=== PATIENT | male | born 2000 | race Caucasian/White ===

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

== ENCOUNTER 2021-04-06 19:45 | Emergency (ER) | payer MEDICAID, OTHER, SELFPAY ==
[2021-04-06 19:46] VITALS: BP 109/83; PULSE 113; RESP 18; TEMP 36.2; O2SAT 97; BMI 17.2
--- NOTE | 2021-04-06 20:23 | EX.ED.DYSGE1 ---
HPI History of Present Illness Chief Complaint: Cold Sx Informant: patient Narrative Narrative: 21-year-old male presents the emergency department with concerns for COVID-19. Patient states that yesterday he is having some nasal congestion cough and is now developed fever. He notes that his mom and sister have both tested positive for COVID-19. He is on vaccinated. He denies any diarrhea nausea or vomiting. He has not had anything to eat today because there is nothing in the house. PFSH PFS Medical History Attention deficit disorder Home Medications NK 07/03/20 [History Last Taken Unknown] Allergy/AdvReac Type Severity Reaction Status Date / Time amphetamine aspartate Allergy Other Verified 04/06/21 19:48 [From Adderall] amphetamine sulfate Allergy Other Verified 04/06/21 19:48 [From Adderall] dextroamphetamine saccharate Allergy Other Verified 04/06/21 19:48 [From Adderall] dextroamphetamine sulfate Allergy Other Verified 04/06/21 19:48 [From Adderall] methylphenidate HCl Allergy Other Verified 04/06/21 19:48 [From Concerta] no surgical history Social History (Updated 04/06/21 @ 20:[address] Steve Alonso DO) Smoking Status: Current every day smoker tobacco type: cigarettes substance use type: does not use ROS ROS ED Constitutional Constitutional ED: Reports fever(s); Denies chills or weight loss Eyes Eyes: Denies change in vision or diplopia ENT ENT ED: Reports rhinorrhea; Denies ear pain or sore throat Cardiovascular Cardiovascular: Denies chest pain, orthopnea, palpitations or racing heartbeat Respiratory/Chest Respiratory/Chest: Reports cough; Denies dyspnea or orthopnea Gastrointestinal Gastrointestinal: Denies abdominal pain, diarrhea, nausea or vomiting Genitourinary Genitourinary ED: Denies dysuria, hematuria or urinary frequency Musculoskeletal Musculoskeletal: Denies arthralgias or myalgias Integumentary Denies abscess or rash Neurologic Neurologic: Denies headache(s) or weakness Psychiatric Psychiatric: Denies anxiety, depression, suicidal ideation or suicidal thoughts Endocrine Endocrinology: Denies polydipsia, polyphagia or polyuria Allergic/Immunologic Allergic/Immunologic ED: Denies mouth swelling, tongue swelling or urticaria EXAM Physical Exam Const Vital Signs: 04/06/21 19:46 04/06/21 20:21 Temperature 97.2 F L Temperature Source Temporal Pulse Rate 113 H Respiratory Rate 18 Respiratory Effort Normal Respiratory Pattern Normal Blood Pressure 109/83 H Blood Pressure Mean 91 Pulse Ox 97 Oxygen Delivery Method Room Air Positive well nourished and well developed General Appearance ED: well developed HEENT Reports normocephalic, head/scalp atraumatic and moist mucous membranes Eyes PERRL and EOMs intact bilaterally Neck no lymphadenopathy, supple and no JVD Resp normal respiratory effort and clear to auscultation bilaterally Cardio regular rate, regular rhythm and no murmurs GI normal to inspection, nondistended, normoactive bowel sounds and non-tender Palpation: soft Back/Spine no CVA tenderness and normal ROM Extremity normal to inspection General Extremety ED: Negative for edema General Extremity: Negative for edema Neuro oriented x3 and CN's II-XII intact bilaterally Sensorium / Orientation: alert Motor Exam: strength 5/5 throughout Psych mental status grossly normal Mood & Affect: Negative for depressed or tearful Skin no rashes or lesions noted and no wounds MDM MDM MDM Narrative Medical decision making narrative: Patient's Covid test is negative. Would recommend continued supportive care. He was advised that sometimes early on in the course of Covid there may not be enough viral particles for the rapid to test positive. Discharge Plan Triage Chief Complaint: Cold Sx ED Provider: Steve Alonso Dx/Rx/DC Orders Clinical Impression: Viral URI Instructions: ED URI, Viral, No Abx (Adult) Prescriptions: No Action NK RF: 0 Primary Care Provider: Carroll Rodarte Referrals: Carroll Rodarte MD [Primary Care Provider] - As Needed Disposition Disposition: Home, Self Care
[2021-04-06 21:17] VITALS: BP 120/70; PULSE 74; RESP 16; O2SAT 98
--- NOTE | 2021-04-07 12:29 | CM.ED ---
SOCIAL WORK Referral Source: Dr. Alonso Reason for Consult: Resources Patient seen in ER on 04/06/21- No SW present. Dr. Alonso with concerns as patient reported no food in the home as to why patient did not eat that day. Call to patient. Introduced role and reason for referral. Patient laughed and stated, I didn't mean we don't have food. There is food here, I'm just a picky eater. Patient reports feeling better today. Patient denies any needs at this time. Kaitlynn Gruber, GLOBAL SECURITY ARCHITECT, FLIGHT SURVEYOR
== END 2021-04-06 21:18 | disposition home or self-care (01) ==
PROVIDERS: Emergency Provider Emergency Medicine; PCP Pediatrics
DX: J06.9 Acute upper respiratory infection, unspecified (principal); Z20.822 Contact with and (suspected) exposure to COVID-19; F98.8 Other specified behavioral and emotional disorders with onset usually occurring in childhood and adolescence; F17.210 Nicotine dependence, cigarettes, uncomplicated
CPT/HCPCS: 87426; 99282

== ENCOUNTER 2022-12-16 14:15 | Emergency (ER) | payer MEDICAID, SELFPAY ==
[2022-12-16 14:16] VITALS: BP 148/89; PULSE 75; RESP 16; TEMP 36.3; O2SAT 100; BMI 18.5
--- NOTE | 2022-12-16 15:38 | EX.ED.DYSGE1 ---
HPI History of Present Illness Chief Complaint: Abd Pain [facility] Medical History Attention deficit disorder Home Medications NK 07/03/20 [History Last Taken Unknown] Allergy/AdvReac Type Severity Reaction Status Date / Time amphetamine aspartate Allergy Other Verified 12/16/22 14:15 [From Adderall] amphetamine sulfate Allergy Other Verified 12/16/22 14:15 [From Adderall] dextroamphetamine saccharate Allergy Other Verified 12/16/22 14:15 [From Adderall] dextroamphetamine sulfate Allergy Other Verified 12/16/22 14:15 [From Adderall] methylphenidate HCl Allergy Other Verified 12/16/22 14:15 [From Concerta] Social History (Updated 04/06/21 @ 20:[address] Steve Alonso DO) Smoking Status: Current every day smoker tobacco type: cigarettes substance use type: does not use EXAM Physical Exam Const Vital Signs: 12/16/22 14:16 12/16/22 15:57 Temperature 97.3 F L Temperature Source Temporal Pulse Rate 75 66 Respiratory Rate 16 16 Blood Pressure 148/89 H 137/87 H Blood Pressure Mean 108 103 Pulse Ox 100 96 Oxygen Delivery Method Room Air Room Air MDM MDM MDM Narrative Medical decision making narrative: HISTORY OF PRESENT ILLNESS: 22-year-old male here for abdominal pain. Patient states he has had a long history of abdominal pain that is intermittent. He notes pain worsened today. He states he has bouts of severe abdominal pain that is not necessarily associated with food. He states he has on and off diarrhea and constipation. His last bowel movement was yesterday. He denies any melena or hematochezia. He denies any history abdominal surgeries. Denies any nausea or vomiting. Denies any fever. Denies any family history of abdominal surgeries in his mother or father in their 20s. He denies any chest pain or shortness of breath. He denies any testicular pain, testicular lesions or penile lesions. Denies any dysuria, frequency or urgency. REVIEW OF SYSTEMS: Pertinent positives: Abdominal pain Pertinent negatives: Vomiting, fever, testicular pain PHYSICAL EXAM: Nursing triage notes reviewed, Vital signs reviewed Constitutional: please see mdm HENT: MMM Eyes: Pupils equal round and reactive to light, Extraocular muscles intact Neck: No stridor, no JVD, full neck ROM Lungs: Clear to auscultation, No wheezing or rales. No increased work of breathing, no conversational dyspnea, no accessory muscle use, no nasal flaring. No respiratory distress noted Heart: Regular rate and rhythm, No murmurs, No rubs and No gallops, 2+ distal pulses (radial, femoral, posterior tibial) in all extremities Abdomen: Soft, there is no tenderness, rigidity, rebound or guarding, no obvious peritoneal signs, no palpable pulsatile abdominal masses, no auscultated abdominal bruit : No CVAT Extremities: No edema Neuro: No focal neurological deficits, cranial nerves II through XII intact, 5/5 strength in all extremities. Intact sensation to light touch in all extremities, 2+ reflexes bilateral patella tendons. Normal gait. No ataxia. Skin: No rash or lesions noted MEDICAL DECISION MAKING: Chief Complaint: Abdominal pain External records reviewed: No recent advanced imaging of the abdomen or pelvis noted MDM Narrative: Patient was hemodynamically stable, afebrile, abdominal exam was benign not consistent with acute surgical pathology. I considered the following differential diagnosis: Pancreatitis, GERD, gastritis, esophagitis, gallbladder pathology, IBS I obtain labs rule out pancreatitis, hepatobiliary obstruction, significant systemic inflammation, signs of dehydration, electrolyte abnormalities or anemia. Gave the patient symptomatic treatment in the form of fluids, Pepcid. Patient's labs show no evidence of systemic inflammation, anemia, dehydration, anion gap to suggest endorgan hypoperfusion, ANUP, no evidence of hepatobiliary obstruction, no evidence of pancreatitis. His repeat abdominal exam remained benign. He is appropriate for discharge home. There is no clear life-limiting etiology could be ascertained. I suspect the patient may be suffering from GERD. I encouraged him to follow-up with gastroenterology. Follow-up with our local director of in service education provided. Strict return precautions and follow-up instructions were discussed. Factors affecting care: History of ADHD Social determinants of health: Positive tobacco use History obtained from others: None Shared decision making: I will have a discussion with the patient and or visitors regarding risk/benefits of further testing or admission. They will be made aware of of the risk/benefits inherent in this decision they will be given the opportunity to voice understanding. Consults: None Lab Data Labs: Laboratory Results - last 24 hr 12/16/22 12/16/22 15:35 15:35 WBC 6.9 RBC 5.45 Hgb 16.1 Hct 47.8 MCV 87.7 MCH 29.5 MCHC 33.7 RDW Std Deviation 39.0 RDW Coeff of Adriel 12.2 Plt Count 301 MPV 10.7 Immature Gran % (Auto) 0.100 Neut % (Auto) 54.9 Lymph % (Auto) 35.6 Dubois % (Auto) 8.0 Eos % (Auto) 1.0 Baso % (Auto) 0.4 Absolute Neuts (auto) 3.8 Absolute Lymphs (auto) 2.46 Nucleated RBC % 0 Sodium 143 Potassium 3.6 Chloride 111 H Carbon Dioxide 24.0 Anion Gap 8 BUN 12 Creatinine 0.82 Estim Creat Clear Calc 98.83 Est GFR (MDRD) Af Amer 150 Est GFR (MDRD) Non-Af 124 BUN/Creatinine Ratio 14.5 Glucose 89 Calcium 9.4 Total Bilirubin 0.90 AST 17 ALT 21 Alkaline Phosphatase 103 Total Protein 8.2 Albumin 4.6 Globulin 3.6 Albumin/Globulin Ratio 1.3 Lipase 25 Discharge Plan Triage Chief Complaint: Abd Pain ED Provider: Adair Boucher Dx/Rx/DC Orders Clinical Impression: Abdominal pain Prescriptions: No Action NK Stand Alone Forms: ED Work / School Excuse Primary Care Provider: Carroll Rodarte Referrals: Fran Soto DO [Med Staff - Active Staff] - Carroll Rodarte MD [Primary Care Provider] - Activity Restrictions/Additional Instructions: Thank you for trusting us with your care today! Please take Tylenol (2 pills, 650 mg), ibuprofen (2 pills, 400 mg) every 6 hours as needed for pain and fever control. Please begin taking [id number] omeprazole. You can get this from any pharmacy or drugstore. Please take this daily. Please follow-up with Gastroenterology Dr. Soto. Please return to the emergency department if your symptoms change or worsen. Please follow with your primary care physician for further outpatient evaluation and management. Disposition Disposition: Home, Self Care Discharge Date/Time: 12/16/22 17:32
[2022-12-16 15:56] LABS: Absolute Lymphocyte Count 2.46 X10^3/uL (0.83-4.51); Absolute Neutrophil Count 3.8 X10^3/uL (2.0-7.7); Basophil# 0.03 X10^3/uL; Basophil% 0.4 % (0-1); Eosinophil# 0.07 X10^3/uL; Hematocrit 47.8 % (40-54); Hemoglobin 16.1 g/dL (13.0-16.5); Lymphocyte # 2.46 X10^3/ul (0.83-4.51); Lymphocyte % 35.6 % (19-41); Mean Corp Hgb Conc 33.7 g/dL (32-36); Mean Corpuscular Hgb 29.5 pg (27.0-32.0); Mean Corpuscular Volume 87.7 fL (80-94); Mean Platelet Vol. 10.7 fl (6.2-12.0); Monocyte# 0.55 X10^3/uL; NRBC Flagged by Analyzer 0 % (0-5); Neutrophil # 3.79 X10^3/uL (2.7-7.7); Neutrophil % 54.9 % (47-70); Platelet Count 301 K/mm3 (150-450); RBC Distribution Width CV 12.2 % (11.6-14.6); Red Blood Count 5.45 M/mm3 (4.6-6.2); White Blood Count 6.9 K/mm3 (4.4-11.0)
[2022-12-16 15:57] VITALS: BP 137/87; PULSE 66; RESP 16; O2SAT 96
[2022-12-16] MEDS: Famotidine 200 MG/20 ML MDV 20 MG in 0.9% Normal Saline (Pres. free 8 ML 300 MG IV (16:12)
[2022-12-16 16:33] LABS: ALB/GLOB Ratio 1.3 RATIO (0.9-2.4); AST(SGOT) 17 U/L (15-37); Alanine Aminotransfer ALT/SGPT 21 U/L (16-61); Albumin, Serum 4.6 g/dL (3.2-5.0); Alkaline Phosphatase 103 U/L (45-117); Anion Gap 8 (5-15); BUN 12 mg/dL (7-18); BUN/Creat Ratio 14.5 RATIO (10-20); Calcium,Total 9.4 mg/dL (8.5-10.1); Chloride 111 mmol/L (98-107); Creatinine, Serum 0.82 mg/dL (0.70-1.30); EST Glomerular Filtration Rate 124 mL/min (>60); Est Glom Filt Rate - Afr Amer 150 mL/min (>60); Estimated Creatinine Clearance 98.83 ml/min; Globulin 3.6 g/dL (2.2-4.2); Glucose 89 mg/dL (74-106); Lipase 25 U/L (13-75); Potassium 3.6 mmol/L (3.5-5.1); Protein, Total 8.2 g/dL (6.4-8.2); Sodium Level 143 mmol/L (136-145)
== END 2022-12-16 17:32 | disposition home or self-care (01) ==
PROVIDERS: Emergency Provider Emergency Medicine; PCP Pediatrics; Visit Provider Emergency Medicine
DX: R10.9 Unspecified abdominal pain (principal); F17.210 Nicotine dependence, cigarettes, uncomplicated
CPT/HCPCS: 80053; 83690; 85025; 99283; J7040; A4216; J3490

== ENCOUNTER 2024-02-01 15:48 | Emergency (ER) | payer SELFPAY ==
[2024-02-01 15:49] VITALS: BP 148/88; PULSE 113; RESP 16; TEMP 37.2; O2SAT 98; BMI 17.8
--- NOTE | 2024-02-01 16:44 | RAD_ITS ---
STUDY: X-RAY CHEST REASON FOR EXAM: Male, 23 years old. cough fever TECHNIQUE: Frontal and lateral views of the chest. COMPARISON: None. FINDINGS: The lungs are clear and expanded. There is no demonstrated pleural abnormality. Normal size heart. Normal mediastinum and asif. Normal visualized pulmonary arteries. Normal visualized aortic arch and descending thoracic aorta. Normal visualized thoracic spine. Normal visualized ribs, clavicles, and shoulders. There is no demonstrated abnormality of the visualized soft tissue structures of the upper abdomen. RAD/Chest PA and Lateral IMPRESSION: Normal x-ray examination of the chest. Electronically Signed: Kevin Liang MD at 17:12 EDT ,
[2024-02-01 20:00] VITALS: BP 135/87; PULSE 89; RESP 18; TEMP 37.9; O2SAT 97
--- NOTE | 2024-02-01 21:49 | EX.ED.VIS.UR ---
HPI HPI - URI History of Present Illness Chief Complaint: Cough Informant: patient Onset/Context/Timing Onset: Days (4) Context: Gradual Onset Timing: Continuous Quality: Sharp, aching Location: Chest and abdomen Worsened by: - (Coughing) Relieved by: - (Nothing) Associated Symptoms Associated Symptoms: Positive for Nasal Congestion, Headache, Sinus Pressure, Myalgias, Nausea, Vomiting, Shortness of Breath, Chest Pain and Productive Cough; Negative for Diarrhea, Nonproductive cough or Hemoptysis Narrative Narrative: Patient presents with cough and fever that has been getting worse over the last 4 days. Patient states it is gradually got worse. Patient states it is constant. Patient describes his pain as sharp. Patient states it is across his entire chest and into his abdomen. Patient states it is worse with coughing. Patient admits to headache and sinus pressure. Patient admits to some nausea and vomiting. Patient states he is coughing up some clear sputum. Patient also admits to some dizziness and fatigue. Patient admits to some general myalgias. ROS ROS ED Constitutional Constitutional ED: Reports fever(s); Denies chills Eyes Eyes: Denies blurry vision or change in vision ENT ENT ED: Reports rhinorrhea; Denies sore throat Cardiovascular Cardiovascular: Reports chest pain; Denies palpitations Respiratory/Chest Respiratory/Chest: Reports cough and dyspnea Gastrointestinal Gastrointestinal: Reports nausea and vomiting Genitourinary Genitourinary ED: Reports urinary frequency; Denies dysuria or hematuria Musculoskeletal Musculoskeletal: Reports back pain, myalgias and neck pain Integumentary Denies abscess or rash Neurologic Neurologic: Reports headache(s); Denies weakness Allergic/Immunologic Allergic/Immunologic ED: Denies mouth swelling or urticaria [facility] Medical History (Updated 02/01/24 @ 22:[address] Jay Herman, DO) Attention deficit disorder Home Medications ?Medication ?Instructions ?Recorded ?Last Taken ?Type NK 07/03/20 Unknown History Allergy/AdvReac Type Severity Reaction Status Date / Time amphetamine aspartate (From Allergy Other Verified 12/16/22 14:15 Adderall) amphetamine sulfate (From Allergy Other Verified 12/16/22 14:15 Adderall) dextroamphetamine saccharate Allergy Other Verified 12/16/22 14:15 (From Adderall) dextroamphetamine sulfate Allergy Other Verified 12/16/22 14:15 (From Adderall) methylphenidate HCl (From Allergy Other Verified 12/16/22 14:15 Concerta) Surgical History (Updated 02/01/24 @ 22:[address] Jay Herman DO) History of hip surgery Hx of knee surgery Social History Smoking Status: Current every day smoker tobacco type: cigarettes substance use type: does not use EXAM Physical Exam Const Vital Signs: 02/01/24 15:49 02/01/24 20:00 02/01/24 21:05 Temperature 98.9 F 100.3 F H Temperature Source Temporal Oral Pulse Rate 113 H 89 Respiratory Rate 16 18 Respiratory Effort Normal Non-Labored Respiratory Depth Respiratory Pattern Blood Pressure 148/88 H 135/87 H Blood Pressure Mean 108 103 Pulse Ox 98 97 Oxygen Delivery Method Room Air Room Air 02/01/24 21:06 Temperature Temperature Source Pulse Rate Respiratory Rate Respiratory Effort Normal Non-Labored Respiratory Depth Normal Respiratory Pattern Normal Blood Pressure Blood Pressure Mean Pulse Ox Oxygen Delivery Method Positive well nourished and well developed General Appearance ED: well developed and NAD HEENT Reports moist mucous membranes Neck supple and no JVD Resp normal respiratory effort and clear to auscultation bilaterally Cardio Rate: regular rate Rhythm: regular rhythm GI non-tender and non-distended Palpation: soft Neuro oriented x3, CN's II-XII intact bilaterally and no sensory deficits noted Sensorium / Orientation: alert Motor Exam: strength 5/5 throughout Psych mental status grossly normal MDM MDM MDM Narrative Medical decision making narrative: Differential diagnosis includes pneumonia, bronchitis, and viral illness. Chest x-ray will be obtained to assess for pneumonia. COVID-19, influenza, and RSV PCR will be obtained to assess for viral illness. Lab Data Lab results narrative: COVID-19 PCR was reviewed and was negative. Influenza PCR was reviewed and was negative for influenza A and influenza B. RSV PCR was reviewed and was negative. Radiography Chest X-Ray - ED: 2 View, Read by ED Physician, Read by Radiologist and No Acute Disease Diagnostic Testing: Clinical Impression(s) from Imaging Studies Chest X-Ray 02/01/24 16:44 IMPRESSION: Normal x-ray examination of the chest. Electronically Signed: Kevin Liang MD at 17:12 EDT , [place] and lateral chest x-ray was obtained. There are 2 views. On my independent interpretation, lung reyes are clear. There is normal cardiac silhouette. Bony thorax is normal. There is no acute process noted. Radiologist also interpreted the x-ray and agrees. Treatment and Re-Evaluation Narrative: Patient was advised of his findings. Patient was advised that this is most likely a viral upper respiratory infection. Patient was instructed to drink plenty of fluids. Patient was instructed to take Tylenol or ibuprofen as needed for pain or fevers. Patient was given a dose of Tylenol here. Patient was instructed to follow-up with his primary care physician in 5 to 7 days. Patient was instructed to return if worse in any way. Patient understood and was agreeable with the plan. All questions were answered. Discharge Plan Triage Chief Complaint: Cough Other Complaint: Chest Pain ED Provider: Jay Herman Dx/Rx/DC Orders Clinical Impression: Viral URI, Tobacco use disorder Instructions: ED URI, Viral, No Abx (Adult) Prescriptions: No Action NK Primary Care Provider: Care Physician,No Primary Referrals: Care Physician,No Primary [Primary Care Provider] - Print Language: Finnish Disposition Disposition: Home, Self Care
[2024-02-01 22:13] VITALS: BP 126/74; PULSE 89; RESP 18; TEMP 36.8; O2SAT 95
== END 2024-02-01 22:14 | disposition home or self-care (01) ==
PROVIDERS: Emergency Provider Emergency Medicine; Visit Provider Emergency Medicine
DX: J06.9 Acute upper respiratory infection, unspecified (principal); R51.9 Headache, unspecified; M79.10 Myalgia, unspecified site; R06.02 Shortness of breath; F17.210 Nicotine dependence, cigarettes, uncomplicated; F98.8 Other specified behavioral and emotional disorders with onset usually occurring in childhood and adolescence
CPT/HCPCS: 71046; 87631; 99283